=== PATIENT | male | born 1980 | race Hispanic/Latino ===

== ENCOUNTER 2020-09-08 07:31 | Emergency (ER) | payer SELFPAY ==
--- NOTE | 2020-09-08 08:18 | Emergency Department Report ---
ED Chest Pain HPI - General Stated Complaint: CHEST PAIN/LT ARM PAIN/JANAK Time Seen by Provider: 09/08/20 08:17 - History of Present Illness Initial Comments: 40-year-old male patient presents with complaints of heart skipping beats this morning. He states the palpitations are intermittent and when it occurs it causes a dull pain in his chest and takes his breath away, however patient denies any shortness of breath or current chest pain. He states he was newly diagnosed with hypertension 2 weeks ago by his primary care doctor. He denies any other past medical history, heart history, or family history of heart disease. Current pain is 0/10 in severity. He denies any cough, fever/chills/sweats, abdominal pain, or recent known sick contacts. -: Sudden - Related Data Previous Rx's Medication Instructions Recorded Last Taken Type Folic Acid [Folvite] 1 mg PO QDAY #30 tablet 06/04/14 Unknown Rx Multivitamin Tab [Multiple Vitamin 1 each PO QDAY #30 tablet 06/04/14 Unknown Rx TAB (Theragran)] Thiamine [Vitamin B-1] 100 mg PO QDAY #30 tablet 06/04/14 Unknown Rx Allergies Allergy/AdvReac Type Severity Reaction Status Date / Time ibuprofen [From Motrin] AdvReac Unknown Verified 06/02/14 16:38 Heart Score - HEART Score History: Slightly suspicious EKG: Normal Age: < 45 Risk factors: 1-2 risk factors Troponin: < normal limit HEART Score: 1 - EKG Read Time Time EKG Completed: 08:25 EKG Read Time: 08:28 ED Review of Systems ROS: Stated complaint: CHEST PAIN/LT ARM PAIN/JANAK Other details as noted in HPI Constitutional: denies: chills, fever Respiratory: denies: cough, shortness of breath Cardiovascular: as per HPI, palpitations Gastrointestinal: denies: abdominal pain ED Past Medical Hx - Past Medical History Hx Heart Attack/AMI: No Hx Congestive Heart Failure: No Hx Diabetes: No Hx Seizures: Yes (last one 2011) Hx Asthma: No Hx COPD: Yes Additional medical history: heart murmur - Surgical History Additional Surgical History: right foot - Social History Smoking Status: Current Every Day Smoker - Medications Home Medications: Home Medications Medication Instructions Recorded Confirmed Last Taken Type Folic Acid [Folvite] 1 mg PO QDAY #30 tablet 01/09/08/20 Unknown Rx Multivitamin Tab [Multiple Vitamin 1 each PO QDAY #30 tablet 06/04/14 09/08/20 Unknown Rx TAB (Theragran)] Thiamine [Vitamin B-1] 100 mg PO QDAY #30 tablet 06/04/14 09/08/20 Unknown Rx ED Physical Exam - General General appearance: alert, in no apparent distress - Head Head exam: Present: atraumatic, normocephalic - Eye Eye exam: Present: normal appearance. Absent: scleral icterus - ENT ENT exam: Present: normal exam - Neck Neck exam: Present: normal inspection - Respiratory Respiratory exam: Present: normal lung sounds bilaterally. Absent: respiratory distress - Cardiovascular Cardiovascular Exam: Present: regular rate, normal rhythm, normal heart sounds - GI/Abdominal GI/Abdominal exam: Present: soft. Absent: tenderness - Extremities Exam Extremities exam: Present: full ROM - Neurological Exam Neurological exam: Present: alert, oriented X3 - Psychiatric Psychiatric exam: Present: normal affect, normal mood - Skin Skin exam: Present: warm, dry, intact, normal color. Absent: rash ED Course Vital Signs 09/08/20 09/08/20 09/08/20 08:31 13:41 14:12 Temperature 98.3 F 97.9 F Pulse Rate 83 62 Respiratory 18 18 13 Rate Blood Pressure 144/100 Blood Pressure 139/75 [Right] O2 Sat by Pulse 97 98 100 Oximetry 09/08/20 09/08/20 09/08/20 14:15 14:30 14:45 Temperature Pulse Rate 57 L 66 58 L Respiratory 15 13 14 Rate Blood Pressure 120/71 149/83 117/70 Blood Pressure [Right] O2 Sat by Pulse 100 100 100 Oximetry 09/08/20 14:47 Temperature Pulse Rate Respiratory 17 Rate Blood Pressure Blood Pressure [Right] O2 Sat by Pulse 98 Oximetry ED Medical Decision Making - Lab Data Result diagrams: 09/08/20 08:28 09/08/20 08:28 Lab Results 09/08/20 09/08/20 09/08/20 Range/Units 08:28 08:28 13:01 WBC 5.6 (4.5-11.0) K/mm3 RBC 4.89 (3.65-5.03) M/mm3 Hgb 16.1 H (11.8-15.2) gm/dl Hct 48.0 H (35.5-45.6) % MCV 98 H (84-94) fl MCH 33 H (28-32) pg MCHC 34 (32-34) % RDW 14.6 (13.2-15.2) % Plt Count 203 (140-440) K/mm3 Lymph % (Auto) 23.7 (13.4-35.0) % [place] % (Auto) 11.3 H (0.0-7.3) % Eos % (Auto) 5.5 H (0.0-4.3) % Baso % (Auto) 1.0 (0.0-1.8) % Lymph # (Auto) 1.3 (1.2-5.4) K/mm3 [place] # (Auto) 0.6 (0.0-0.8) K/mm3 Eos # (Auto) 0.3 (0.0-0.4) K/mm3 Baso # (Auto) 0.1 (0.0-0.1) K/mm3 Seg Neutrophils % 58.5 (40.0-70.0) % Seg Neutrophils # 3.2 (1.8-7.7) K/mm3 Sodium 140 (137-145) mmol/L Potassium 4.4 (3.6-5.0) mmol/L Chloride 102.7 (98-107) mmol/L Carbon Dioxide 28 (22-30) mmol/L Anion Gap 14 mmol/L BUN 7 L (9-20) mg/dL Creatinine 0.8 (0.8-1.3) mg/dL Estimated GFR > 60 ml/min BUN/Creatinine Ratio 9 % Glucose 89 (75-100) mg/dL Calcium 8.8 (8.4-10.2) mg/dL Magnesium 2.00 (1.7-2.3) mg/dL Total Bilirubin 0.20 (0.1-1.2) mg/dL AST 17 (5-40) units/L ALT 12 (7-56) units/L Alkaline Phosphatase 75 (35-129) units/L Troponin T < 0.010 < 0.010 (0.00-0.029) ng/mL Total Protein 6.7 (6.3-8.2) g/dL Albumin 4.1 (3.9-5) g/dL Albumin/Globulin Ratio 1.6 % - EKG Data EKG shows normal: sinus rhythm Rate: normal - EKG Data Interpretation: nonspecific ST-T wave panchito - Radiology Data Radiology results: report reviewed FINDINGS: SUPPORT DEVICES: None. HEART / MEDIASTINUM: No significant abnormality. LUNGS / PLEURA: No significant pulmonary or pleural abnormality. No pneumothorax. ADDITIONAL FINDINGS: No significant additional findings. IMPRESSION: No significant abnormality or interval change from 06/02/2014 - Medical Decision Making 40-year-old male patient presents with complaints of heart skipping beats this morning. He states the palpitations are intermittent and when it occurs it causes a dull pain in his chest and takes his breath away, however patient denies any shortness of breath or current chest pain. He states he was newly diagnosed with hypertension 2 weeks ago by his primary care doctor. He denies any other past medical history, heart history, or family history of heart disease. Current pain is 0/10 in severity. He denies any cough, fever/chills/sweats, abdominal pain, or recent known sick contacts. patient s tates he has been extremely stressed due to working 18 hours a day at work. No significant abnormalities noted on CBC, CMP, or chest x-ray. Initial and repeat troponin are normal. No significant acute abnormalities noted on EKG. Heart score = 1. His vitals are within normal limits, he is well-appearing, he is stable for discharge home. Recommend follow-up with cardiology in [address] patient with Dr. Reilly-who was agreeable to plan. Critical care attestation.: If time is entered above; I have spent that time in minutes in the direct care of this critically ill patient, excluding procedure time. ED Disposition Clinical Impression: Palpitations, Other chest pain Disposition: DC-01 TO HOME OR SELFCARE Is pt being admited?: No Condition: Stable Instructions: Nonspecific Chest Pain, Adult, [id number], Palpitations Referrals: CORI WILSON MD [Staff Physician] - 2-3 Days PRIMARY CAREMD [Primary Care Provider] - 3-5 Days Forms: Work/School Release Form(ED)
[2020-09-08 08:43] LABS: Basophils # (Auto) 0.1 K/mm3 (0.0-0.1); Eosinophils # (Auto) 0.3 K/mm3 (0.0-0.4); Eosinophils % (Auto) 5.5 % (0.0-4.3); Hemoglobin 16.1 gm/dl (11.8-15.2); Lymphocytes # (Auto) 1.3 K/mm3 (1.2-5.4); Lymphocytes % (Auto) 23.7 % (13.4-35.0); Mean Corpuscular HGB Conc 34 % (32-34); Mean Corpuscular Volume 98 fl (84-94); Monocytes # (Auto) 0.6 K/mm3 (0.0-0.8); Monocytes % (Auto) 11.3 % (0.0-7.3); Platelet Count 203 K/mm3 (140-440); Red Blood Count 4.89 M/mm3 (3.65-5.03); Red Cell Distribution Width 14.6 % (13.2-15.2)
--- NOTE | 2020-09-08 09:03 | XRay Report ---
CHEST 2 VIEWS INDICATION / CLINICAL INFORMATION: palpitations. COMPARISON: 06/02/2014 FINDINGS: SUPPORT DEVICES: None. HEART / MEDIASTINUM: No significant abnormality. LUNGS / PLEURA: No significant pulmonary or pleural abnormality. No pneumothorax. ADDITIONAL FINDINGS: No significant additional findings. IMPRESSION: No significant abnormality or interval change from 06/02/2014 Signer Name: Jeronimo Montero MD FACR Signed: 09/08/2020 8:59 AM Workstation Name: [id number]
[2020-09-08 09:08] LABS: Alanine Aminotransferase 12 units/L (7-56); Albumin 4.1 g/dL (3.9-5); BUN/Creatinine Ratio 9; Blood Urea Nitrogen 7 mg/dL (9-20); Calcium 8.8 mg/dL (8.4-10.2); Hemolysis Index 13
[2020-09-08 14:49] VITALS: BP 117/70
== END 2020-09-08 16:19 | disposition home or self-care (01) ==
LOC: ED 07:31
DX: R00.2 Palpitations (principal); R07.89 Other chest pain; J44.9 Chronic obstructive pulmonary disease, unspecified; F17.200 Nicotine dependence, unspecified, uncomplicated; Z88.6 Allergy status to analgesic agent; Z79.899 Other long term (current) drug therapy; Z98.890 Other specified postprocedural states; Z86.69 Personal history of other diseases of the nervous system and sense organs
CPT/HCPCS: 36415; 71046; 80053; 83735; 84484; 85025; 93005

== ENCOUNTER 2021-11-24 22:38 | Emergency (ER) | payer SELFPAY ==
[2021-11-24 23:13] VITALS: BP 110/74
[2021-11-25] MEDS ORDERED: ACETAMINOPHEN W/CODEINE 300-30 MG TAB PO ONE (10:20)
--- NOTE | 2021-11-25 11:11 | Cat Scan Report ---
CT ABDOMEN AND PELVIS WITHOUT CONTRAST INDICATION / CLINICAL INFORMATION: Right groin pain. TECHNIQUE: All CT scans at this location are performed using CT dose reduction for ALARA by means of automated exposure control. COMPARISON: None available. FINDINGS: ABDOMEN: The liver, spleen, gallbladder, bile ducts, pancreas, adrenal glands and kidneys demonstrate no significant abnormality. There is a moderate amount of stool in the colon. I see no evidence of bowel obstruction, wall thicke dante or free air. No adenopathy is present. No vascular abnormality is seen. The lung bases are clear . PELVIS: The distal ureters and urinary bladder are normal. The prostate gland and seminal vesicles ar e unremarkable. A normal appendix is present and there is no evidence of diverticulitis. No abnormal mass or fluid collection is seen. There is a tiny fat-containing right inguinal hernia without compli cation. No osseous abnormality is present. IMPRESSION: 1. No acute abnormality. 2. Tiny fat-containing right inguinal hernia without acute complication. Signer Name: Raciel Méndez MD Signed: 11/25/2021 11:06 AM Workstation Name: [id number]
[2021-11-25 11:20] LABS: Mucus,Urine FEW /HPF; WBC,Urine < 1.0 /HPF (0.0-6.0)
[2021-11-25 11:29] LABS: Color,Urine Straw (Yellow)
[2021-11-25 11:30] LABS: Bilirubin,Urine Negative (Negative); Blood,Urine Negative (Negative); Protein,Urine <15 mg/dL mg/dL (Negative)
--- NOTE | 2021-11-25 12:10 | Emergency Department Report ---
ED General Adult HPI - General Chief complaint: Abdominal Pain Stated complaint: POSS HERNIA/GROIN PAINS Time Seen by Provider: 11/25/21 10:11 Source: patient Mode of arrival: Ambulatory Limitations: No Limitations - History of Present Illness Initial comments: 41-year-old white male with no past medical history presents to the emergency department for evaluation of 1 day history of right groin pain. He states that while at work, he lifted a transmission and has had pain to his right groin since then along with pain in the right lower quadrant. He denies fever, nausea, vomiting, diarrhea, dysuria, and penile discharge. -: Sudden, days(s) (1) Location: abdomen (Right groin area and right lower quadrant) Radiation: non-radiation Severity scale (0 -10): 5 Quality: aching Consistency: constant Worsens with: movement, other (Palpation) Associated Symptoms: denies: chest pain, fever/chills, headaches, loss of appetite, malaise, nausea/vomiting, shortness of breath, syncope, weakness Treatments Prior to Arrival: none - Related Data Previous Rx's Medication Instructions Recorded Last Taken Type Folic Acid [Folvite] 1 mg PO QDAY #30 tablet 06/04/14 Unknown Rx Multivitamin Tab [Multiple Vitamin 1 each PO QDAY #30 tablet 06/04/14 Unknown Rx TAB (Theragran)] Thiamine [Vitamin B-1] 100 mg PO QDAY #30 tablet 06/04/14 Unknown Rx Acetaminophen/Codeine [Tylenol 1 tab PO Q6H PRN #12 tab 11/25/21 Unknown Rx /Codeine # 3 tab] Allergies Allergy/AdvReac Type Severity Reaction Status Date / Time ibuprofen [From Motrin] AdvReac Unknown Verified 06/02/14 16:38 ED Review of Systems ROS: Stated complaint: POSS HERNIA/GROIN PAINS Other details as noted in HPI Comment: All other systems reviewed and negative Constitutional: denies: chills, fever, malaise, weakness ENT: denies: congestion Respiratory: denies: cough, shortness of breath, SOB with exertion, SOB at rest, stridor, wheezing Cardiovascular: denies: chest pain, palpitations, dyspnea on exertion, orthopnea, edema, syncope, paroxysmal nocturnal dyspnea Gastrointestinal: abdominal pain. denies: nausea, vomiting, diarrhea, hematemesis, melena, hematochezia Genitourinary: denies: urgency, dysuria Musculoskeletal: denies: back pain Skin: denies: rash, lesions Neurological: denies: headache, weakness ED Past Medical Hx - Past Medical History Previous Medical History?: Yes Hx Heart Attack/AMI: No Hx Congestive Heart Failure: No Hx Diabetes: No Hx Seizures: Yes (last one 2011) Hx Asthma: No Hx COPD: Yes Additional medical history: heart murmur - Surgical History Past Surgical History?: Yes Additional Surgical History: right foot - Social History Smoking Status: Current Every Day Smoker Substance Use Type: Alcohol - Medications Home Medications: Home Medications Medication Instructions Recorded Confirmed Last Taken Type Folic Acid [Folvite] 1 mg PO QDAY #30 tablet 06/04/14 09/08/20 Unknown Rx Multivitamin Tab [Multiple Vitamin 1 each PO QDAY #30 tablet 06/04/14 09/08/20 Unknown Rx TAB (Theragran)] Thiamine [Vitamin B-1] 100 mg PO QDAY #30 tablet 06/04/14 09/08/20 Unknown Rx Acetaminophen/Codeine [Tylenol 1 tab PO Q6H PRN #12 tab 11/25/21 Unknown Rx /Codeine # 3 tab] ED Physical Exam - General Limitations: No Limitations General appearance: alert, in no apparent distress - Head Head exam: Present: atraumatic, normocephalic - Eye Eye exam: Present: normal appearance. Absent: scleral icterus, conjunctival injection, periorbital swelling, periorbital tenderness - Neck Neck exam: Present: normal inspection, full ROM. Absent: tenderness, lymphadenopathy - Respiratory Respiratory exam: Present: normal lung sounds bilaterally. Absent: respiratory distress, wheezes, rales, rhonchi, stridor, chest wall tenderness - Cardiovascular Cardiovascular Exam: Present: tachycardia, normal heart sounds - GI/Abdominal GI/Abdominal exam: Present: soft, tenderness (Right lower quadrant and right groin), guarding, normal bowel sounds. Absent: distended, rebound, rigid - Extremities Exam Extremities exam: Present: normal inspection, normal capillary refill. Absent: pedal edema, joint swelling, calf tenderness - Back Exam Back exam: Present: normal inspection. Absent: CVA tenderness (R), CVA tenderness (L), vertebral tenderness - Neurological Exam Neurological exam: Present: alert, oriented X3, CN II-XII intact, normal gait - Psychiatric Psychiatric exam: Present: normal affect, normal mood - Skin Skin exam: Present: warm, dry, intact, normal color ED Course Vital Signs 11/24/21 11/25/21 23:09 12:46 Temperature 98.9 F 97.8 F Pulse Rate 101 H 96 H Respiratory 16 18 Rate Blood Pressure 110/74 Blood Pressure 110/74 [Right] O2 Sat by Pulse 96 100 Oximetry ED Medical Decision Making - Radiology Data Radiology results: report reviewed, image reviewed CT abdomen and pelvis without contrast: FINDINGS: ABDOMEN: The liver, spleen, gallbladder, bile ducts, pancreas, adrenal glands and kidneys demonstrate no significant abnormality. There is a moderate amount of stool in the colon. I see no evidence of bowel obstruction, wall thickening or free air. No adenopathy is present. No vascular abnormality is seen. The lung bases are clear. PELVIS: The distal ureters and urinary bladder are normal. The prostate gland and seminal vesicles are unremarkable. A normal appendix is present and there is no evidence of diverticulitis. No abnormal mass or fluid collection is seen. There is a tiny fat-containing right inguinal hernia without complication. No osseous abnormality is present. IMPRESSION: 1. No acute abnormality. 2. Tiny fat-containing right inguinal hernia without acute complication. - Medical Decision Making 41-year-old white male with no past medical history presents to the emergency department for evaluation of 1 day history of right groin pain. He states that while at work, he lifted a transmission and has had pain to his right groin since then along with pain in the right lower quadrant. He denies fever, nausea, vomiting, diarrhea, dysuria, and penile discharge. CT scan abdomen pelvis positive for small right inguinal hernia. UA negative for UTI. Pain improved after Tylenol 3. Patient will be discharged home to follow-up with his primary care provider and general surgery for further evaluation and management of hernia with Tylenol 3 to use as needed for pain. He is advised to return to the emergency department for any concerning symptoms. He verbalizes understanding of and agreement with plan of care. Critical care attestation.: If time is entered above; I have spent that time in minutes in the direct care of this critically ill patient, excluding procedure time. ED Disposition Clinical Impression: Inguinal hernia Qualifiers: Obstruction and gangrene presence: without obstruction or gangrene Laterality: unilateral Recurrence: non-recurrent Qualified Code(s): K40.90 - Unilateral inguinal hernia, without obstruction or gangrene, not specified as recurrent Disposition: 01 HOME / SELF CARE / HOMELESS Is pt being admited?: No Does the pt Need Aspirin: No Condition: Stable Instructions: Inguinal Hernia, Adult, [id number] Additional Instructions: Take medications as prescribed. Follow-up with primary care provider or general surgery for further evaluation and management. Return to the emergency department as needed. Prescriptions: Acetaminophen/Codeine [Tylenol /Codeine # 3 tab] 1 tab PO Q6H PRN #12 tab PRN Reason: Pain, Moderate (4-6) Referrals: SHARON MINOR MD [Staff Physician] - 3-5 Days MARYJANE BILL DO [Staff Physician] - 3-5 Days Forms: Work/School Release Form(ED) Time of Disposition: 12:09
== END 2021-11-25 12:45 | disposition home or self-care (01) ==
LOC: ED 22:38
DX: K40.90 Unilateral inguinal hernia, without obstruction or gangrene, not specified as recurrent (principal); R56.9 Unspecified convulsions; J44.9 Chronic obstructive pulmonary disease, unspecified; R01.1 Cardiac murmur, unspecified; Z98.890 Other specified postprocedural states; F17.290 Nicotine dependence, other tobacco product, uncomplicated; Z88.6 Allergy status to analgesic agent
CPT/HCPCS: 74176; 81001; 99284